=== PATIENT | female | born 1965 | race African-American/Black ===

== ENCOUNTER 2018-07-25 06:17 | Day surgery (SDC) | payer OTHER ==
[2018-07-23 11:52] VITALS: BMI 45.8
[2018-07-25] MEDS ORDERED: ONDANSETRON 4 MG/2 ML VIAL IVPUSH PRN (07:05)
[2018-07-25] MEDS ORDERED: oxyCODONE HCL 5 MG TABLET PO PRN ×2 (07:05)
[2018-07-25] MEDS ORDERED: LACTATED RINGERS SOLUTION 1,000 ML IV SCH (07:15)
[2018-07-25] MEDS ORDERED: LIDOCAINE HCL 2% (50ML VIAL) INF ONE (08:04)
[2018-07-25] MEDS ORDERED: BUPIVACAINE HCL/PF 0.25% (2.5MG/ML) 10 ML VIAL IJ ONE (08:11)
[2018-07-25 08:39] VITALS: TEMP 98.4
[2018-07-25 09:25] VITALS: BP 121/66; PULSE 69
--- NOTE | 2018-07-26 14:19 | OP ---
DATE OF OPERATION: 07/25/2018 SURGEON: Emma Barkley MD RETURNING OFFICER: FABIOLA Adams PREOPERATIVE DIAGNOSIS: Right Achilles tendinitis and partial tear. POSTOPERATIVE DIAGNOSIS: Right Achilles tendinitis and partial tear. PROCEDURE: Tenex debridement of Achilles tendon, including incision, debridement, and irrigation, with promotion of angiogenesis. FINDINGS: Thickened scar tissue noted on ultrasound and by palpation along the Achilles tendon in the distal third. PROCEDURE: Informed consent was obtained. The patient came to the operating room, where the right lower extremity was prepped and draped in a sterile fashion. A tourniquet was not used. Area of maximal tenderness was marked prior to the start of surgery. A 1-cm incision was made proximal to the site of maximum tenderness. A Tenex debriding needle was placed through the incision, and under ultrasound guidance, the damaged tendon was debrided along the longitudinal portions of the fibers. This allowed for debridement of the damaged area, removing it both through irrigation and through pulse irrigation. The energy placed through the needle also burned away the damaged tissues. Under ultrasound, the damaged tissue was found to be eliminated. Secondary effect was increasing blood supply to the area through pulse energy. Wound was irrigated with copious amounts of irrigation, closed with 4-0 nylon, sterile dressing was placed, and the patient was transferred to the recovery room . The PA listed above was present and assisted at surgery. Their presence was absolutely medically necessary for the completion of the procedure. They helped hold the arthroscopy, pass instruments (and implants when indicated) and the procedure could not have been completed without their assistance. EMMA BARKLEY M.D. [id number]
== END 2018-07-25 09:31 | disposition home or self-care (01) ==
LOC: FASU 06:17
PROVIDERS: ATTEND Orthopaedic Surgery
PROC: 0LBN0ZZ Excision of Right Lower Leg Tendon, Open Approach (ICD-10-PCS; principal; 2018-07-25 08:08)
DX: M76.61 Achilles tendinitis, right leg (principal); S86.011A Strain of right Achilles tendon, initial encounter; X58.XXXA Exposure to other specified factors, initial encounter; Y93.9 Activity, unspecified; Y92.9 Unspecified place or not applicable
CPT/HCPCS: 84703

== ENCOUNTER 2023-08-29 13:59 | Emergency (ER) | payer OTHER ==
[2023-08-29 14:28] VITALS: BP 125/81; PULSE 62; RESP 19; TEMP 98.4; BMI 44.1
[2023-08-29] MEDS ORDERED: ACETAMINOPHEN 1000 MG/100 ML BAG IVPB ONE (15:01)
[2023-08-29] MEDS ORDERED: SODIUM CHLORIDE 0.9% 500 ML INFUS.BAG IV ONE ×2 (15:01→16:55)
[2023-08-29] MEDS ORDERED: FAMOTIDINE 20 MG/50 ML IVPB 20 MG/50 ML MG IVPB ONE ×2 (15:01→15:20)
[2023-08-29] MEDS ORDERED: ACETAMINOPHEN INJECTION 100 ML IVPB ONE (15:20)
[2023-08-29] MEDS ORDERED: MAG HYDROX/AL HYDROX/SIMETH 30 ML UNIT-DOSE CUP PO ONE (15:33)
[2023-08-29 15:35] LABS: BASO % 0.7 % (0-2.0); EOS % 1.8 % (0-4.5); HEMATOCRIT 39.6 % (32.4-45.2); LYMPH % 32.6 % (8-40); MCHC 32.9 g/dl (32.0-36.0); MEAN CELL VOLUME 82.2 fl (80-96); MEAN PLT VOLUME 8.8 fl (7.5-11.1); MONO % 7.2 % (3.8-10.2); NEUT % 57.7 % (42.8-82.8); PLATELET COUNT 283 10^3/uL (134-434); RBC 4.82 M/mm3 (3.60-5.2); RDW 13.9 % (11.6-15.6); WHITE BLOOD COUNT 7.2 K/mm3 (4.0-10.0)
[2023-08-29] MEDS ORDERED: MAG HYDROX/AL HYDROX/SIMETH 30 ML UNIT-DOSE CUP ONE (15:51)
[2023-08-29 15:59] LABS: POTASSIUM 3.7 mmol/L (3.5-5.1)
[2023-08-29 16:01] LABS: ALBUMIN 3.4 g/dl (3.4-5.0); BLOOD UREA NITROGEN 11.8 mg/dL (7-18); CALCIUM 9.1 mg/dL (8.5-10.1); MAGNESIUM 2.1 mg/dL (1.8-2.4)
[2023-08-29 16:06] LABS: BILIRUBIN,TOTAL 0.8 mg/dL (0.2-1); TOT PROT 7.1 g/dl (6.4-8.2)
[2023-08-29 16:11] LABS: CREATININE 0.7 mg/dL (0.55-1.3)
[2023-08-29] MEDS ORDERED: PANTOPRAZOLE SODIUM 40 MG VIAL IVPUSH ONE (16:24)
[2023-08-29 16:43] LABS: PH,URINE 7.5 (5.0-8.0); URINE APPEARANCE CLEAR; URINE BILIRUBIN NEGATIVE (NEGATIVE); URINE COLOR YELLOW; URINE GLUCOSE (UA) NEGATIVE (NEGATIVE); URINE KETONE NEGATIVE (NEGATIVE); URINE LEUK ESTERASE NEGATIVE (NEGATIVE); URINE NITRITE NEGATIVE (NEGATIVE); URINE PROTEIN NEGATIVE (NEGATIVE)
[2023-08-29] MEDS ORDERED: METOCLOPRAMIDE HCL INJECTION 10 MG/2 ML VIAL IVPB ONE (16:55)
[2023-08-29] MEDS ORDERED: SUCRALFATE 1 GM/10 ML UNIT DOSE CUPS PO ONE (16:56)
[2023-08-29] MEDS ORDERED: PANTOPRAZOLE SODIUM 40 MG VIAL ONE (18:53)
[2023-08-29] MEDS ORDERED: METOCLOPRAMIDE HCL INJECTION 10 MG/2 ML VIAL ONE (18:53)
[2023-08-29] MEDS ORDERED: SUCRALFATE 1 GM TABLET (FP) ONE (18:53)
== END 2023-08-29 20:18 | disposition home or self-care (01) ==
LOC: JER 13:59
PROC: 3E033GC Introduction of Other Therapeutic Substance into Peripheral Vein, Percutaneous Approach (ICD-10-PCS; principal; 2023-08-29)
PROC: 3E033NZ Introduction of Analgesics, Hypnotics, Sedatives into Peripheral Vein, Percutaneous Approach (ICD-10-PCS; 2023-08-29)
PROC: 3E033GC Introduction of Other Therapeutic Substance into Peripheral Vein, Percutaneous Approach (ICD-10-PCS; 2023-08-29)
PROC: 3E033GC Introduction of Other Therapeutic Substance into Peripheral Vein, Percutaneous Approach (ICD-10-PCS; 2023-08-29)
DX: R10.84 Generalized abdominal pain (principal); Z20.822 Contact with and (suspected) exposure to COVID-19
CPT/HCPCS: 0241U-QW; 36415; 76705-TC; 80053; 81003; 83690; 83735; 84484; 85025; 87086; 93005; 93010; 99285-25

== ENCOUNTER 2023-09-03 11:06 | Inpatient (IN) | payer OTHER ==
[2023-09-03] MEDS ORDERED: ACETAMINOPHEN 1000 MG/100 ML BAG IVPB ONE (12:26)
[2023-09-03] MEDS ORDERED: SODIUM CHLORIDE 0.9% 500 ML INFUS.BAG IV ONE (12:26)
[2023-09-03] MEDS ORDERED: PANTOPRAZOLE SODIUM 40 MG VIAL IVPUSH ONE (12:37)
[2023-09-03] MEDS ORDERED: SUCRALFATE 1 GM TABLET (FP) PO ONE (12:37)
[2023-09-03] MEDS ORDERED: MAG HYDROX/AL HYDROX/SIMETH -MYLANTA- ORAL SUSPENSION PO ONE (12:48)
[2023-09-03] MEDS ORDERED: MAG HYDROX/AL HYDROX/SIMETH 30 ML UNIT-DOSE CUP ONE (13:30)
[2023-09-03] MEDS ORDERED: ACETAMINOPHEN INJECTION 100 ML IVPB ONE (13:30)
[2023-09-03] MEDS ORDERED: SUCRALFATE 1 GM TABLET (FP) ONE (13:30)
[2023-09-03] MEDS ORDERED: PANTOPRAZOLE SODIUM 40 MG/100 ML BAG IVPB ONE (13:30)
[2023-09-03 13:34] LABS: BASO % 0.6 % (0-2.0); EOS % 0.9 % (0-4.5); HEMATOCRIT 40.4 % (32.4-45.2); HEMOGLOBIN 13.3 GM/dL (10.7-15.3); LYMPH % 31.5 % (8-40); MCHC 32.8 g/dl (32.0-36.0); MEAN CELL VOLUME 82.3 fl (80-96); MEAN PLT VOLUME 8.8 fl (7.5-11.1); MONO % 6.8 % (3.8-10.2); NEUT % 60.2 % (42.8-82.8); PLATELET COUNT 332 10^3/uL (134-434); RBC 4.92 M/mm3 (3.60-5.2); WHITE BLOOD COUNT 7.2 K/mm3 (4.0-10.0)
[2023-09-03 13:38] LABS: PH,URINE 5.5 (5.0-8.0); URINE APPEARANCE CLEAR; URINE BILIRUBIN NEGATIVE (NEGATIVE); URINE COLOR YELLOW; URINE GLUCOSE (UA) NEGATIVE (NEGATIVE); URINE KETONE NEGATIVE (NEGATIVE); URINE LEUK ESTERASE NEGATIVE (NEGATIVE); URINE NITRITE NEGATIVE (NEGATIVE); URINE PROTEIN NEGATIVE (NEGATIVE)
[2023-09-03 13:51] LABS: POTASSIUM 4.1 mmol/L (3.5-5.1)
[2023-09-03 13:53] LABS: CALCIUM 9.4 mg/dL (8.5-10.1)
[2023-09-03 13:54] LABS: ALBUMIN 3.6 g/dl (3.4-5.0); BLOOD UREA NITROGEN 13.1 mg/dL (7-18)
[2023-09-03 13:58] LABS: BILIRUBIN,TOTAL 0.6 mg/dL (0.2-1); TOT PROT 7.8 g/dl (6.4-8.2)
[2023-09-03 14:08] LABS: CREATININE 0.8 mg/dL (0.55-1.3)
[2023-09-03] MEDS ORDERED: FAMOTIDINE 20 MG/50 ML IVPB 20 MG/50 ML MG IVPB ONE ×2 (14:13→14:18)
[2023-09-03] MEDS ORDERED: METOCLOPRAMIDE HCL INJECTION 10 MG/2 ML VIAL IVPUSH ONE (14:13)
[2023-09-03] MEDS ORDERED: METOCLOPRAMIDE HCL INJECTION 10 MG/2 ML VIAL ONE (14:18)
[2023-09-03] MEDS ORDERED: LACTATED RINGERS SOLUTION 1000 ML INFUS.BAG IV ONE (16:50)
[2023-09-03] MEDS ORDERED: ACETAMINOPHEN 1000 MG/100 ML BAG IVPB PRN (19:20)
[2023-09-03] MEDS ORDERED: SODIUM CHLORIDE 1,000 ML IV SCH (19:30)
[2023-09-03] MEDS ORDERED: DULoxetine HCL 20 MG CAPSULE.DR PO PRN (21:09)
[2023-09-03] MEDS ORDERED: PANTOPRAZOLE SODIUM 40 MG VIAL IVPUSH SCH (21:30)
[2023-09-03] MEDS: SODIUM CHLORIDE 1,000 ML IV SCH (23:10)
[2023-09-04 00:58] VITALS: RESP 18
[2023-09-04] MEDS ORDERED: ONDANSETRON 4 MG/2 ML VIAL IVPUSH PRN (01:18)
[2023-09-04 05:36] VITALS: BMI 43.3
[2023-09-04] MEDS: ATORVASTATIN CA 20 MG TABLET (FP) PO SCH (06:34)
[2023-09-04] MEDS: SODIUM CHLORIDE 1,000 ML IV SCH (06:34)
[2023-09-04] MEDS: DULoxetine HCL 30 MG CAPSULE.DR PO SCH (06:34)
[2023-09-04] MEDS: ATENOLOL 50 MG TABLET (FP) PO SCH (06:34)
[2023-09-04] MEDS ORDERED: PATIENT'S OWN MEDICATION (NON-FORMULARY) (Linaclotide [Linzess] 290 MCG Capsule) PO SCH (07:00)
[2023-09-04] MEDS ORDERED: HYDROCHLOROTHIAZIDE 25 MG TABLET (FP) PO SCH (07:00)
[2023-09-04] MEDS ORDERED: ACETAMINOPHEN 325 MG TABLET (FP) PO PRN (08:06)
[2023-09-04] MEDS ORDERED: HYDROmorphone HCl 2 MG/ML VIAL IVPUSH PRN (08:08)
[2023-09-04] MEDS ORDERED: oxyCODONE HCL 5 MG TABLET PO PRN (08:32)
[2023-09-04 09:35] LABS: HEMATOCRIT 33.9 % (32.4-45.2); HEMOGLOBIN 11.2 GM/dL (10.7-15.3); MCH 27.3 pg (25.7-33.7); MCHC 32.9 g/dl (32.0-36.0); MEAN CELL VOLUME 82.9 fl (80-96); MEAN PLT VOLUME 9.1 fl (7.5-11.1); PLATELET COUNT 250 10^3/uL (134-434); RBC 4.09 M/mm3 (3.60-5.2); RDW 13.8 % (11.6-15.6); WHITE BLOOD COUNT 5.4 K/mm3 (4.0-10.0)
[2023-09-04] MEDS: morphine SULFATE IMMEDIATE RELEASE 30 MG TAB PO SCH ×2 (09:46→22:35)
[2023-09-04] MEDS: PANTOPRAZOLE SODIUM 40 MG VIAL IVPUSH SCH ×2 (09:46→22:37)
[2023-09-04] MEDS ORDERED: ENOXAPARIN NA (PORCINE) 40 MG/0.4 ML DISP.SYRIN SQ SCH (10:00)
[2023-09-04 10:50] LABS: POTASSIUM 3.3 mmol/L (3.5-5.1)
[2023-09-04 11:00] LABS: MAGNESIUM 2.1 mg/dL (1.8-2.4)
[2023-09-04 11:01] LABS: BLOOD UREA NITROGEN 14.5 mg/dL (7-18); CALCIUM 8.4 mg/dL (8.5-10.1)
[2023-09-04 11:02] LABS: ALBUMIN 2.9 g/dl (3.4-5.0)
[2023-09-04 11:03] LABS: CREATININE 0.7 mg/dL (0.55-1.3)
[2023-09-04 11:04] LABS: BILIRUBIN,DIRECT 0.2 mg/dL (0.0-0.2)
[2023-09-04 11:05] LABS: TOT PROT 6.1 g/dl (6.4-8.2)
[2023-09-04 11:06] LABS: BILIRUBIN,TOTAL 0.5 mg/dL (0.2-1)
[2023-09-04] MEDS ORDERED: INSULIN (LEVEMIR) 100 UNITS/ML UNITS SQ SCH (22:00)
[2023-09-04] MEDS: POTASSIUM CHLORIDE ORAL LIQUID 20 MEQ/15 ML PO SCH (22:34)
[2023-09-05] MEDS: SODIUM CHLORIDE 1,000 ML IV SCH ×3 (02:30→23:41)
[2023-09-05] MEDS: ATORVASTATIN CA 20 MG TABLET (FP) PO SCH (06:22)
[2023-09-05] MEDS: ATENOLOL 50 MG TABLET (FP) PO SCH (06:22)
[2023-09-05] MEDS: DULoxetine HCL 30 MG CAPSULE.DR PO SCH (06:22)
[2023-09-05] MEDS: POTASSIUM CHLORIDE ORAL LIQUID 20 MEQ/15 ML PO SCH (09:17)
[2023-09-05] MEDS: morphine SULFATE IMMEDIATE RELEASE 30 MG TAB PO SCH ×2 (09:18→22:06)
[2023-09-05] MEDS: PANTOPRAZOLE SODIUM 40 MG VIAL IVPUSH SCH (09:18)
[2023-09-05] MEDS: LIPASE/PROTEASE/AMYLASE 36,000 UNIT CAPSULE PO SCH ×2 (12:31→18:07)
[2023-09-05] MEDS: PANTOPRAZOLE 40 MG TABLET PO SCH (22:07)
[2023-09-06] MEDS: ATENOLOL 50 MG TABLET (FP) PO SCH (07:11)
[2023-09-06] MEDS: DULoxetine HCL 30 MG CAPSULE.DR PO SCH (07:11)
[2023-09-06] MEDS: ATORVASTATIN CA 20 MG TABLET (FP) PO SCH (07:11)
[2023-09-06] MEDS: LIPASE/PROTEASE/AMYLASE 36,000 UNIT CAPSULE PO SCH ×3 (09:29→17:20)
[2023-09-06] MEDS: morphine SULFATE IMMEDIATE RELEASE 30 MG TAB PO SCH (09:30)
[2023-09-06] MEDS: PANTOPRAZOLE 40 MG TABLET PO SCH (09:30)
[2023-09-06 15:19] VITALS: BP 142/49; PULSE 57; TEMP 98.3
[2023-09-06] MEDS ORDERED: POTASSIUM CHLORIDE TABS 20 MEQ TABLET.ER (FP) PO ONE (16:00)
[2023-09-07] MEDS ORDERED: POTASSIUM CHLORIDE TABS 20 MEQ TABLET.ER (FP) PO ONE (15:45)
== END 2023-09-06 18:28 | disposition home or self-care (01) | DRG 439 ==
LOC: JER 11:06 → JERBED 17:09 → OBSVTOIN 20:57 → J8W 09-04 03:21
PROVIDERS: ADMIT Internal Medicine; ATTEND Internal Medicine
DX: K85.90 Acute pancreatitis without necrosis or infection, unspecified (principal); Z68.41 Body mass index [BMI] 40.0-44.9, adult; I10 Essential (primary) hypertension; E78.5 Hyperlipidemia, unspecified; E66.01 Morbid (severe) obesity due to excess calories; K21.9 Gastro-esophageal reflux disease without esophagitis; E11.9 Type 2 diabetes mellitus without complications; E86.0 Dehydration
CPT/HCPCS: 36415; 74177-TC; 74182-TC; 80048; 80053; 80061; 80076; 81003; 82150; 82962; 83036; 83690; 83735; 84100; 84484; 85025; 85027; 87086; 93005; 93010; 97116-GP; 97161-GP; 99285-25; G0378; Q9967

== ENCOUNTER 2024-03-31 18:35 | Emergency (ER) | payer OTHER ==
[2024-03-31 18:47] VITALS: BP 133/59; PULSE 80; RESP 18; TEMP 98.7; BMI 42.5
[2024-03-31] MEDS ORDERED: MAG HYDROX/AL HYDROX/SIMETH 30 ML UNIT-DOSE CUP ONE (21:06)
[2024-03-31] MEDS ORDERED: FAMOTIDINE 20 MG/50 ML IVPB 20 MG/50 ML MG IVPB ONE (21:07)
[2024-03-31] MEDS ORDERED: ACETAMINOPHEN INJECTION 100 ML IVPB ONE (21:15)
[2024-03-31] MEDS: FAMOTIDINE 20 MG/50 ML IVPB 20 MG/50 ML MG IVPB ONE (21:26)
[2024-03-31] MEDS: LACTATED RINGERS SOLUTION 1000 ML INFUS.BAG IV ONE (21:26)
[2024-03-31] MEDS: MAG HYDROX/AL HYDROX/SIMETH 30 ML UNIT-DOSE CUP PO ONE (21:26)
[2024-03-31] MEDS: ACETAMINOPHEN 1000 MG/100 ML BAG IVPB ONE (21:27)
[2024-03-31 21:46] LABS: BASO % 0.6 % (0-2.0); EOS % 0.8 % (0-4.5); HEMATOCRIT 39.2 % (32.4-45.2); HEMOGLOBIN 12.9 GM/dL (10.7-15.3); LYMPH % 35.8 % (8-40); MCH 27.4 pg (25.7-33.7); MEAN CELL VOLUME 83.1 fl (80-96); MEAN PLT VOLUME 8.9 fl (7.5-11.1); MONO % 6.3 % (3.8-10.2); NEUT % 56.5 % (42.8-82.8); PLATELET COUNT 326 10^3/uL (134-434); RBC 4.71 M/mm3 (3.60-5.2); RDW 13.3 % (11.6-15.6); WHITE BLOOD COUNT 7.5 K/mm3 (4.0-10.0)
[2024-03-31 21:57] LABS: POTASSIUM 3.8 mmol/L (3.5-5.1)
[2024-03-31 21:59] LABS: ALBUMIN 3.9 g/dl (3.4-5.0); CALCIUM 9.7 mg/dL (8.5-10.1)
[2024-03-31 22:00] LABS: BLOOD UREA NITROGEN 14.2 mg/dL (7-18)
[2024-03-31 22:02] LABS: CREATININE 0.7 mg/dL (0.55-1.3)
[2024-03-31 22:04] LABS: BILIRUBIN,TOTAL 0.8 mg/dL (0.2-1); TOT PROT 7.5 g/dl (6.4-8.2)
== END 2024-03-31 22:55 | disposition home or self-care (01) ==
LOC: JER 18:35
PROC: 3E033GC Introduction of Other Therapeutic Substance into Peripheral Vein, Percutaneous Approach (ICD-10-PCS; principal; 2024-03-31)
PROC: 3E033NZ Introduction of Analgesics, Hypnotics, Sedatives into Peripheral Vein, Percutaneous Approach (ICD-10-PCS; 2024-03-31)
DX: R10.13 Epigastric pain (principal)
CPT/HCPCS: 36415; 71045-TC-FY; 76705-TC; 80053; 83690; 84484; 85025; 93005; 93010; 96365; 96375; 99285-25; J0131

== ENCOUNTER 2024-04-01 13:09 | Observation (INO) | payer OTHER ==
[2024-04-01] MEDS ORDERED: MAG HYDROX/AL HYDROX/SIMETH 30 ML UNIT-DOSE CUP ONE (14:50)
[2024-04-01] MEDS ORDERED: FAMOTIDINE 20 MG/50 ML IVPB 20 MG/50 ML MG IVPB ONE (14:50)
[2024-04-01] MEDS ORDERED: ACETAMINOPHEN INJECTION 100 ML IVPB ONE (14:50)
[2024-04-01 14:57] LABS: BASO % 0.8 % (0-2.0); HEMATOCRIT 39.6 % (32.4-45.2); LYMPH % 32.5 % (8-40); MCHC 32.9 g/dl (32.0-36.0); MEAN CELL VOLUME 82.2 fl (80-96); MEAN PLT VOLUME 8.6 fl (7.5-11.1); NEUT % 58.7 % (42.8-82.8); PLATELET COUNT 347 10^3/uL (134-434); RBC 4.82 M/mm3 (3.60-5.2); RDW 13.6 % (11.6-15.6); WHITE BLOOD COUNT 6.2 K/mm3 (4.0-10.0)
[2024-04-01 15:01] LABS: EPI CELLS 36 /uL (0-25.1); HYALINE CASTS 3 /uL (0-3.1); URINE APPEARANCE CLEAR; URINE BACTERIA 1626 /uL (0-1359); URINE BILIRUBIN NEGATIVE (NEGATIVE); URINE COLOR DK YELLOW; URINE GLUCOSE (UA) NEGATIVE (NEGATIVE); URINE KETONE 1+ (NEGATIVE); URINE LEUK ESTERASE NEGATIVE (NEGATIVE); URINE NITRITE NEGATIVE (NEGATIVE); URINE PROTEIN 1+ (NEGATIVE); URINE RBC 22 /uL (0-23.9); URINE WBC 38 /uL (0-25.8)
[2024-04-01] MEDS: LACTATED RINGERS SOLUTION 1000 ML INFUS.BAG IV ONE ×2 (15:01→19:02)
[2024-04-01] MEDS: MAG HYDROX/AL HYDROX/SIMETH 30 ML UNIT-DOSE CUP PO ONE (15:02)
[2024-04-01] MEDS: ACETAMINOPHEN 1000 MG/100 ML BAG IVPB ONE (15:02)
[2024-04-01] MEDS: FAMOTIDINE 20 MG/50 ML IVPB 20 MG/50 ML MG IVPB ONE (15:02)
[2024-04-01 15:22] LABS: ACTIVATED PTT 36.4 SECONDS (25.2-36.5); INR 1.04 (0.83-1.09); PROTHROMBIN TIME (PATIENT) 11.7 SEC (9.7-13.0)
[2024-04-01 15:27] LABS: ALBUMIN 3.8 g/dl (3.4-5.0); BLOOD UREA NITROGEN 13.5 mg/dL (7-18); CALCIUM 9.8 mg/dL (8.5-10.1); MAGNESIUM 2.2 mg/dL (1.8-2.4)
[2024-04-01 15:30] LABS: CREATININE 0.6 mg/dL (0.55-1.3)
[2024-04-01 15:31] LABS: BILIRUBIN,TOTAL 0.9 mg/dL (0.2-1)
[2024-04-01 15:32] LABS: TOT PROT 7.5 g/dl (6.4-8.2)
[2024-04-01] MEDS ORDERED: morphine SULFATE 4 MG/ML VIAL ONE (18:50)
[2024-04-01] MEDS: morphine CARPU-JECT 4 MG/1 ML DISP.SYRIN IVPUSH ONE (19:02)
[2024-04-01] MEDS: INSULIN ASPART SLIDING SCALE (NOVOLOG) 1 VIAL SQ SCH (21:19)
[2024-04-02] MEDS ORDERED: ACETAMINOPHEN 1000 MG/100 ML BAG IVPB PRN ×2 (00:43→12:12)
[2024-04-02 01:05] VITALS: BMI 41.5
[2024-04-02] MEDS ORDERED: LACTATED RINGERS SOLUTION 1,000 ML/1,000 ML INFUS.BAG IV SCH (01:15)
[2024-04-02] MEDS: LACTATED RINGERS SOLUTION 1,000 ML/1,000 ML INFUS.BAG IV SCH (01:55)
[2024-04-02] MEDS: KETOROLAC TROMETHAMINE 15 MG/ML VIAL IVPUSH PRN (08:39)
[2024-04-02 09:23] LABS: BASO % 0.9 % (0-2.0); EOS % 1.8 % (0-4.5); HEMATOCRIT 37.8 % (32.4-45.2); HEMOGLOBIN 12.6 GM/dL (10.7-15.3); MCH 27.3 pg (25.7-33.7); MCHC 33.4 g/dl (32.0-36.0); MEAN CELL VOLUME 81.8 fl (80-96); MEAN PLT VOLUME 9.2 fl (7.5-11.1); MONO % 8.8 % (3.8-10.2); NEUT % 47.5 % (42.8-82.8); PLATELET COUNT 342 10^3/uL (134-434); RBC 4.62 M/mm3 (3.60-5.2); RDW 13.4 % (11.6-15.6)
[2024-04-02 09:31] LABS: COCAINE, UR NEGATIVE (NEGATIVE); METHADONE, UR NEGATIVE (NEGATIVE); URINE AMPHETAMINES NEGATIVE (NEGATIVE)
[2024-04-02 09:32] LABS: OPIATES, URI POSITIVE (NEGATIVE); PHENCYCLIDINE,URINE NEGATIVE (NEGATIVE); URINE BARBITURATES NEGATIVE (NEGATIVE); URINE BENZODIAZEPINES NEGATIVE (NEGATIVE)
[2024-04-02 09:42] LABS: POTASSIUM 3.7 mmol/L (3.5-5.1)
[2024-04-02 09:44] LABS: CALCIUM 9.7 mg/dL (8.5-10.1)
[2024-04-02 09:45] LABS: ALBUMIN 3.7 g/dl (3.4-5.0); BLOOD UREA NITROGEN 11.3 mg/dL (7-18); MAGNESIUM 2.1 mg/dL (1.8-2.4)
[2024-04-02 09:48] LABS: CREATININE 0.6 mg/dL (0.55-1.3)
[2024-04-02 09:49] LABS: BILIRUBIN,TOTAL 0.9 mg/dL (0.2-1); TOT PROT 7.3 g/dl (6.4-8.2)
[2024-04-02] MEDS: ENOXAPARIN NA (PORCINE) 40 MG/0.4 ML DISP.SYRIN SQ SCH (10:58)
[2024-04-02] MEDS: PANTOPRAZOLE SODIUM 40 MG VIAL IVPUSH SCH (12:45)
[2024-04-02] MEDS: LIPASE/PROTEASE/AMYLASE 36,000 UNIT CAPSULE PO SCH (17:09)
[2024-04-02] MEDS: SUCRALFATE 1 GM/10 ML UNIT DOSE CUPS PO SCH (18:14)
[2024-04-02] MEDS: PANTOPRAZOLE 40 MG TABLET PO SCH (23:03)
[2024-04-03 06:37] VITALS: RESP 20
[2024-04-03 07:50] LABS: CHOLESTEROL 171 mg/dL (50-200)
[2024-04-03 07:51] LABS: HDL CHOLESTEROL 40 mg/dL (40-60); LDL CHOLESTEROL (ONLY SJRH) 98 mg/dL (5-100)
[2024-04-03] MEDS: LISINOPRIL 10 MG TABLET PO SCH (10:27)
[2024-04-03] MEDS: amLODIPine BESYLATE 5 MG TABLET (FP) PO SCH (10:27)
[2024-04-03 13:56] VITALS: BP 141/59; PULSE 73; TEMP 98.6
[2024-04-03] MEDS ORDERED: ATORVASTATIN CA 20 MG TABLET (FP) PO SCH (22:00)
== END 2024-04-03 19:09 | disposition home or self-care (01) ==
LOC: JER 13:09 → JERBED 19:07 → J7W 22:45
PROVIDERS: ADMIT Internal Medicine; ATTEND Nurse Practitioner
PROC: 3E033NZ Introduction of Analgesics, Hypnotics, Sedatives into Peripheral Vein, Percutaneous Approach (ICD-10-PCS; principal; 2024-04-01)
PROC: 3E023GC Introduction of Other Therapeutic Substance into Muscle, Percutaneous Approach (ICD-10-PCS; 2024-04-01)
PROC: 3E0333Z Introduction of Anti-inflammatory into Peripheral Vein, Percutaneous Approach (ICD-10-PCS; 2024-04-01)
PROC: 3E0337Z Introduction of Electrolytic and Water Balance Substance into Peripheral Vein, Percutaneous Approach (ICD-10-PCS; 2024-04-01)
PROC: 3E033NZ Introduction of Analgesics, Hypnotics, Sedatives into Peripheral Vein, Percutaneous Approach (ICD-10-PCS; 2024-04-01)
PROC: 3E033GC Introduction of Other Therapeutic Substance into Peripheral Vein, Percutaneous Approach (ICD-10-PCS; 2024-04-01)
DX: K85.90 Acute pancreatitis without necrosis or infection, unspecified (principal); I10 Essential (primary) hypertension; E11.9 Type 2 diabetes mellitus without complications; M48.00 Spinal stenosis, site unspecified; E78.5 Hyperlipidemia, unspecified; K21.9 Gastro-esophageal reflux disease without esophagitis; K76.0 Fatty (change of) liver, not elsewhere classified; K86.9 Disease of pancreas, unspecified; K86.2 Cyst of pancreas; K59.09 Other constipation; Z79.4 Long term (current) use of insulin
CPT/HCPCS: 36415; 74177-TC; 80053; 80061; 80307; 81003; 82787; 82962; 83690; 83735; 84100; 85025; 85610; 85730; 87086; 93005; 93010; 96365; 96372; 96375; 99285-25; G0378; J0131; Q9967